=== PATIENT | male | born 1950 | race Caucasian/White ===

== ENCOUNTER 2018-10-04 10:06 | Observation (INO) ==
--- NOTE | 2018-10-04 10:40 | Emergency Department Note ---
Disposition Clinical Impression: Atrial fibrillation with RVR Disposition: Admitted As Inpatient Referrals: Nannette Allan, HE[employer] MACHINERY OPERATOR [Primary Care Provider] - Time of Disposition: 14:06 General Adult HPI - General Chief complaint: ED Arrhythmia/Palpitations Stated complaint: irregular heart beat Time Seen by Provider: 10/04/18 10:16 Source: patient Limitations: no limitations Nursing Notes Reviewed: Yes Vital Signs Reviewed: Yes - History of Present Illness HPI Narrative: She is a 68-year-old male with a history of atrial fibrillation who presents from his PCP office due to an irregular heartbeat. EKG was done finding A. fib with RVR. Patient is on hyzaar and a baby aspirin a day. An EKG was done and PCPs. Showed A. fib with RVR. Patient denies any complaints at this time. States he is feeling fine. Has some palpitations. This is normal for him. Denies chest pain, shortness of breath. Does say has a little epigastric discomfort. Was away with belching. believes he just gas and this is normal for him. His fever chills, cough, chest pain, nausea vomiting, change in bowel or bladder habits, swelling. Dr. Arevalo accepts admission Pain Scale: 0 - Related Data Home Medications Medication Instructions Recorded Confirmed Amlodipine [Norvasc] 5 mg PO DAILY 05/01/15 11/03/16 Aspirin 81 mg PO DAILY 05/01/15 11/03/16 Losartan/Hydrochlorothiazide 1 each PO DAILY 05/01/15 11/03/16 [Hyzaar 100-25 Tablet] Multivitamin [Flintstones] 1 each PO DAILY 05/01/15 11/03/16 Pantoprazole Sodium [Protonix] 20 mg PO DAILY 05/01/15 11/03/16 Previous Rx's Medication Instructions Recorded Atorvastatin [Lipitor] 40 mg PO HS #30 tablet 05/01/15 Ondansetron ODT [Zofran ODT] 4 mg SL Q8HR PRN #6 tab.rapdis 11/06/16 Allergies Allergy/AdvReac Type Severity Reaction Status Date / Time No Known Allergies Allergy Verified 11/06/16 12:59 Constitutional: Reports: as per HPI Eyes: Reports: vision change ENT ED: Denies: congestion Cardiovascular: Reports: as per HPI Respiratory: Reports: as per HPI Gastrointestinal: Reports: as per HPI Genitourinary: Reports: as per HPI Musculoskeletal: Denies: myalgia Integumentary: Denies: rash Neurological: Denies: headache Past Medical History - Past Medical History Medical history: Reports: hypertension Surgical history: Reports: herniorrhaphy Psychiatric history: Reports: anxiety - Social History Smoking Status: Current some day smoker Smokeless Tobacco Status: No Alcohol use: Reports: none Drug use: Reports: none Physical Exam - General Limitations: no limitations General appearance: alert, in no apparent distress - Head Head exam: atraumatic, normocephalic, normal inspection - Eye Eye exam: Present: normal appearance, PERRL, EOMI - ENT ENT exam: normal exam, normal oropharynx, mucous membranes moist - Chest Chest inspection: Present: normal inspection, symmetric chest wall rise - Respiratory Respiratory exam: Present: normal lung sounds bilaterally. Absent: respiratory distress, wheezes - Cardiovascular Cardiovascular exam: Present: tachycardia, irregular rhythm, normal heart sounds - Extremities Exam Extremities exam: Present: normal inspection, full ROM. Absent: tenderness, pedal edema, calf tenderness - Psychiatric Psychiatric exam: Present: normal affect, normal mood - Skin Skin exam: Present: warm, dry, intact, normal color Course Vital Signs Temperature 97.5 F L 10/04/18 10:09 Pulse Rate 78 10/04/18 10:09 Respiratory Rate 14 10/04/18 10:09 Blood Pressure 127/74 10/04/18 10:09 O2 Sat by Pulse Oximetry 99 10/04/18 10:09 Temperature 97.5 F L 10/04/18 10:09 Pulse Rate 110 10/04/18 14:21 Respiratory Rate 16 10/04/18 14:21 Blood Pressure 117/75 10/04/18 14:21 O2 Sat by Pulse Oximetry 97 10/04/18 14:21 Oxygen Delivery Oxygen Delivery Room Air Medical Decision Making - [facility] Narrative Medical decision making narrative: Patient is in stable A. fib with RVR. She was only on Hyzaar and baby aspirin for his A. fib. Not adequately rate controlled. Continue on Cardizem infusion to heart rate less than 90. Patient be paroxysmal A. fib. Heart is and has been lowering heart rate. Patient still slightly tachycardic. We will admit. Remains asymptomatic Dr. Arevalo accepts admission - Lab Data Result diagrams: 10/04/18 10:43 10/04/18 10:43 Lab Results 10/04/18 10/04/18 Range/Units 10:43 10:43 WBC 10.5 (4.3-11.1) K/mcL RBC 5.30 (4.19-5.50) M/mcL Hgb 16.2 (12.9-16.9) g/dL Hct 46.0 (37.5-50.1) % MCV 86.8 (83.0-100.0) fL MCH 30.6 (28.0-33.3) pg MCHC 35.2 (31.6-35.5) g/dL RDW 13.7 (11.5-14.5) % Plt Count 173 (140-400) K/mcL MPV 11.4 (9.4-12.4) fL Immature Gran % 0.3 (0-4) % Seg Neutrophils % 58.3 % Lymphocytes % 28.2 % Monocytes % 9.6 % Eosinophils % 3.2 % Basophils % 0.4 % Neutrophils # 6.1 (1.6-8.9) K/mcL Lymphocytes # 3.0 (0.6-4.6) K/mcL Monocytes # 1.0 (0.0-1.3) K/mcL Eosinophils # 0.3 (0.0-0.6) K/mcL Basophils # 0.0 (0.0-0.2) K/mcL Sodium 143 (136-145) mEq/L Potassium 3.5 (3.5-5.1) mEq/L Chloride 109 H (98-107) mEq/L Carbon Dioxide 23 (23-29) mEq/L BUN 23 (8-23) mg/dL Creatinine 0.86 (0.70-1.30) mg/dL Est GFR ( Amer) > 60 (> 60) Est GFR (Non-Af Amer) > 60 (> 60) BUN/Creatinine Ratio 27 H (6-26) Glucose 132 H (70-105) mg/dL Calculated Osmolality 302 H (280-300) Calcium 9.5 (8.6-10.3) mg/dL Magnesium 2.0 (1.6-2.6) mg/dL Total Bilirubin 0.6 (0.3-1.0) mg/dL AST 16 (13-39) Units/L ALT 17 (7-52) Units/L Alkaline Phosphatase 70 (34-104) Units/L Troponin I < 0.03 (< 0.04) ng/mL Serum Total Protein 6.8 (6.4-8.9) g/dL Albumin 4.2 (3.5-5.7) g/dL Globulin 2.6 (2.4-3.5) g/dL Albumin/Globulin Ratio 1.6 (1.1-2.2)
--- NOTE | 2018-10-04 11:06 | Emergency Department Note ---
Disposition Clinical Impression: Atrial fibrillation with RVR Disposition: Admitted As Inpatient General Adult HPI - General Chief complaint: ED Arrhythmia/Palpitations Stated complaint: irregular heart beat Time Seen by Provider: 10/04/18 10:16 Source: patient Limitations: no limitations - History of Present Illness Pain Scale: 0 - Related Data Home Medications Medication Instructions Recorded Confirmed Amlodipine [Norvasc] 5 mg PO DAILY 05/01/15 11/03/16 Aspirin 81 mg PO DAILY 05/01/15 11/03/16 Losartan/Hydrochlorothiazide 1 each PO DAILY 05/01/15 11/03/16 [Hyzaar 100-25 Tablet] Multivitamin [Flintstones] 1 each PO DAILY 05/01/15 11/03/16 Pantoprazole Sodium [Protonix] 20 mg PO DAILY 05/01/15 11/03/16 Previous Rx's Medication Instructions Recorded Atorvastatin [Lipitor] 40 mg PO HS #30 tablet 05/01/15 Ondansetron ODT [Zofran ODT] 4 mg SL Q8HR PRN #6 tab.rapdis 11/06/16 Allergies Allergy/AdvReac Type Severity Reaction Status Date / Time No Known Allergies Allergy Verified 11/06/16 12:59 Constitutional: Reports: as per HPI Eyes: Reports: vision change ENT ED: Denies: congestion Cardiovascular: Reports: as per HPI Respiratory: Reports: as per HPI Gastrointestinal: Reports: as per HPI Genitourinary: Reports: as per HPI Musculoskeletal: Denies: myalgia Integumentary: Denies: rash Neurological: Denies: headache Past Medical History - Past Medical History Medical history: Reports: hypertension Surgical history: Reports: herniorrhaphy Psychiatric history: Reports: anxiety - Social History Smoking Status: Current some day smoker Smokeless Tobacco Status: No Alcohol use: Reports: none Drug use: Reports: none Physical Exam - General Limitations: no limitations General appearance: alert, in no apparent distress Course Vital Signs Temperature 97.5 F L 10/04/18 10:09 Pulse Rate 78 10/04/18 10:09 Respiratory Rate 14 10/04/18 10:09 Blood Pressure 127/74 10/04/18 10:09 O2 Sat by Pulse Oximetry 99 10/04/18 10:09 Temperature 97.5 F L 10/04/18 10:09 Pulse Rate 110 10/04/18 14:21 Respiratory Rate 16 10/04/18 14:21 Blood Pressure 117/75 10/04/18 14:21 O2 Sat by Pulse Oximetry 97 10/04/18 14:21 Oxygen Delivery Oxygen Delivery Room Air Medical Decision Making - Lab Data Result diagrams: 10/04/18 10:43 10/04/18 10:43 Lab Results 10/04/18 10/04/18 Range/Units 10:43 10:43 WBC 10.5 (4.3-11.1) K/mcL RBC 5.30 (4.19-5.50) M/mcL Hgb 16.2 (12.9-16.9) g/dL Hct 46.0 (37.5-50.1) % MCV 86.8 (83.0-100.0) fL MCH 30.6 (28.0-33.3) pg MCHC 35.2 (31.6-35.5) g/dL RDW 13.7 (11.5-14.5) % Plt Count 173 (140-400) K/mcL MPV 11.4 (9.4-12.4) fL Immature Gran % 0.3 (0-4) % Seg Neutrophils % 58.3 % Lymphocytes % 28.2 % Monocytes % 9.6 % Eosinophils % 3.2 % Basophils % 0.4 % Neutrophils # 6.1 (1.6-8.9) K/mcL Lymphocytes # 3.0 (0.6-4.6) K/mcL Monocytes # 1.0 (0.0-1.3) K/mcL Eosinophils # 0.3 (0.0-0.6) K/mcL Basophils # 0.0 (0.0-0.2) K/mcL Sodium 143 (136-145) mEq/L Potassium 3.5 (3.5-5.1) mEq/L Chloride 109 H (98-107) mEq/L Carbon Dioxide 23 (23-29) mEq/L BUN 23 (8-23) mg/dL Creatinine 0.86 (0.70-1.30) mg/dL Est GFR ( Amer) > 60 (> 60) Est GFR (Non-Af Amer) > 60 (> 60) BUN/Creatinine Ratio 27 H (6-26) Glucose 132 H (70-105) mg/dL Calculated Osmolality 302 H (280-300) Calcium 9.5 (8.6-10.3) mg/dL Magnesium 2.0 (1.6-2.6) mg/dL Total Bilirubin 0.6 (0.3-1.0) mg/dL AST 16 (13-39) Units/L ALT 17 (7-52) Units/L Alkaline Phosphatase 70 (34-104) Units/L Troponin I < 0.03 (< 0.04) ng/mL Serum Total Protein 6.8 (6.4-8.9) g/dL Albumin 4.2 (3.5-5.7) g/dL Globulin 2.6 (2.4-3.5) g/dL Albumin/Globulin Ratio 1.6 (1.1-2.2) TSH 1.526 (0.340-5.600) mcIU/mL Critical Care Time Critical Care Time: Yes Total Critical Care Time: 40 Attestation: Critical care performed: Time is exclusive of separately billable procedures. Time includes: direct patient care, patient reassessment, coordination of patient care, interpretation of data (laboratory data, radiology data, and respiratory data), review of patient's medical records, medical consultation and documentation of patient care. Procedures included in critical care time: Procedures excluded from critical care time: Attestation Statement - Attestation Attestation: I examined this patient and my medical decision-making was reviewed with the Resident Physician. I agree with the documented findings, disposition and t reatment plan as described except to the extent set forth below. Patient to the ED with a chief complaint of A. fib. Patient was at is primary provider's office and found to be in atrial fibrillation with RVR. He has a history of the same. He is not sure if he is in this rhythm on the time. He does admit to some intermittent palpitations but states he has felt fine recently. No chest pain. On examination he is pleasant conversant sitting up in bed in no acute distress. Heart tachycardia and irregular and lungs are clear. Plan. Cardiac workup with magnesium. Rate control. Anticoagulation. Likely admission. Admitted to medicine.
[2018-10-04 11:10] LABS: Basophils % 0.4 %; Eosinophils # 0.3 K/mcL (0.0-0.6); Eosinophils % 3.2 %; Hemoglobin 16.2 g/dL (12.9-16.9); Immature Granulocytes % 0.3 % (0-4); Lymphocytes % 28.2 %; Mean Corpuscular HGB Conc 35.2 g/dL (31.6-35.5); Mean Corpuscular Hemoglobin 30.6 pg (28.0-33.3); Mean Corpuscular Volume 86.8 fL (83.0-100.0); Mean Platelet Volume 11.4 fL (9.4-12.4); Monocytes % 9.6 %; Neutrophils # 6.1 K/mcL (1.6-8.9); Platelet Count 173 K/mcL (140-400); Red Cell Distribution Width 13.7 % (11.5-14.5); Segmented Neutrophils % 58.3 %
[2018-10-04 11:31] LABS: Alanine Aminotransferase 17 Units/L (7-52); Albumin 4.2 g/dL (3.5-5.7); Albumin/Globulin Ratio 1.6 (1.1-2.2); Alkaline Phosphatase 70 Units/L (34-104); Aspartate Amino Transferase 16 Units/L (13-39); BUN/Creatinine Ratio 27 (6-26); Bilirubin,Total 0.6 mg/dL (0.3-1.0); Blood Urea Nitrogen 23 mg/dL (8-23); Calcium 9.5 mg/dL (8.6-10.3); Carbon Dioxide 23 mEq/L (23-29); Chloride 109 mEq/L (98-107); Globulin 2.6 g/dL (2.4-3.5); Glucose 132 mg/dL (70-105); Osmolality,Calculated 302 (280-300); Potassium 3.5 mEq/L (3.5-5.1); Sodium 143 mEq/L (136-145); Total Protein 6.8 g/dL (6.4-8.9); Troponin I < 0.03 ng/mL (< 0.04); eGFR For Non-African Americans > 60 (> 60)
[2018-10-04] MEDS ORDERED: Naloxone 0.4 MG/ML INJ IVP PRN (14:43)
[2018-10-04] MEDS ORDERED: Acetaminophen 325 MG TABLET PO PRN (14:43)
--- NOTE | 2018-10-04 14:58 | Internal Med History&Physical ---
Date of Encounter: 10/04/18 Time of Encounter: 14:55 Internal Medicine - H&P: HPI Chief complaint: Patient was sent from his primary care's office for new atrial fibrillation Admitted From: Emergency Dept Plans for Post Hospital Care: Home History of present illness: Mr. Song is a 68 year old male with a past medical history of hyperlipidemia, hypertension, current smoker who presented from his primary care's office for findings concerning for atrial fibrillation with rapid ventricular rate. He went there for a routine physical and denied any new symptoms. He does state that he often on does get some palpitations in his chest which have happened for several months to years and he never thought anything's concerning for that he did he denies any chest pain, shortness of breath, dizziness, headaches, tingling or numbness or weakness in any part of his body. The primary care did an EKG and he was found to have a rate of 140+ with suggestion of atrial fibrillation which is new for the patient and then he was directed to come to the ER. His blood pressure was descent and he was not expressing any neurolo gical symptoms. He is being placed in the hospital for observation. Past Med Surg Social Fam HX - Past Medical History Medical history: hypertension Additional medical history: CHRONIC RENAL INFARCT. ABNORMAL STRESS TEST. Irregular heartbeat Psychiatric history: anxiety - Past Surgical History Surgical History: herniorrhaphy Additional surgical history: RIGHT GREAT TOE REATTACHED. INGUINAL HERNIA. heart cath-no stents - Social History Smoking Status: Current some day smoker Smokeless Tobacco Status: No Alcohol use: none Drug use: none - Additional Family History Additional family history: He does have a family history of early heart attacks in his parents in around 60s Internal Medicine - H&P: Meds Amlodipine [Norvasc] 5 mg PO DAILY 05/01/15 [History] Aspirin 81 mg PO DAILY 05/01/15 [History] Atorvastatin [Lipitor] 40 mg PO HS #30 tablet 05/01/15 [Rx] Losartan/Hydrochlorothiazide [Hyzaar 100-25 Tablet] 1 each PO DAILY 05/01/15 [History] Multivitamin [Flintstones] 1 each PO DAILY 05/01/15 [History] Pantoprazole Sodium [Protonix] 20 mg PO DAILY 05/01/15 [History] Ondansetron ODT [Zofran ODT] 4 mg SL Q8HR PRN #6 tab.rapdis 11/06/16 [Rx] Allergy/AdvReac Type Severity Reaction Status Date / Time No Known Allergies Allergy Verified 11/06/16 12:59 All Systems PM: A 10-system review of systems was performed and is negative for pertinent find ings except as documented above in the HPI. - Constitutional Vitals: Temp Pulse Resp BP Pulse Ox 97.5 F L 110 16 117/75 97 10/04/18 10:09 10/04/18 14:21 10/04/18 14:21 10/04/18 14:21 10/04/18 14:21 Exam: GENERAL: Alert, no distress, cooperative EYES: PERRLA, EOMI EARS: External ears normal, canals clear OROPHARYNX: Lips, mucosa, and tongue normal. Teeth and gums normal. Oropharynx normal. NECK: No jugulovenous distention, No carotid bruits, Carotid pulse normal contour, Supple LUNGS: Lungs clear to auscultation, Good diaphragmatic excursion CARDIAC: Tachycardic, irregularly irregular rhythm, no murmurs rubs or gallops. ABDOMEN: Abdomen soft, non-tender, BS normal, No masses or organomegaly EXTREMITIES: Extremities normal, no deformities, edema, clubbing or skin discoloration. Good capillary refill., No ulcers NEURO: Gait normal. Reflexes normal and symmetric. Sensation grossly intact, Cranial nerves II-XII intact PULSES: 2+ radial, 2+ carotid Rest of the exam is non contributory Internal Med - H&P Results - Labs CBC & Chem 7: 10/04/18 10:43 10/04/18 10:43 Labs: Short CBC 10/04/18 Range/Units 10:43 WBC 10.5 (4.3-11.1) K/mcL Hgb 16.2 (12.9-16.9) g/dL Hct 46.0 (37.5-50.1) % Plt Count 173 (140-400) K/mcL Neutrophils # 6.1 (1.6-8.9) K/mcL BMP 10/04/18 10:43 Sodium 143 Potassium 3.5 Chloride 109 H Carbon Dioxide 23 BUN 23 Creatinine 0.86 Glucose 132 H Calcium 9.5 Cardiac Enzymes 10/04/18 Range/Units 10:43 Troponin I < 0.03 (< 0.04) ng/mL Liver Function 10/04/18 Range/Units 10:43 Total Bilirubin 0.6 (0.3-1.0) mg/dL AST 16 (13-39) Units/L ALT 17 (7-52) Units/L Alkaline Phosphatase 70 (34-104) Units/L Albumin 4.2 (3.5-5.7) g/dL - EKG Data -: EKG Interpreted by Myself Rate: tachycardia (Atrial fibrillation with heart rate of about 140. No ST elevation or depression) - EKG Data Prior EKG available for review: yes When compared to previous EKG: there are significant changes EKG comments: 10/04/18 15:00 EKG reviewed was February 2015 which showed sinus bradycardia - Assessment and plan (1) Atrial fibrillation with RVR Current Visit: Yes Status: Acute Assessment and plan: This is new for the patient and most likely paroxysmal. Patient does not have any gross symptoms although he is had some palpitations off and on for several months. He does have a history of coronary artery disease and his last cardiac catheter was done in 2014 which showed moderate atherosclerotic disease and ejection fraction was normal. He underwent a cardiac catheter after an abnormal stress test. For now I will continue Cardizem drip to titrate his heart rate less than 100. Place him on cardiac telemetry monitoring and check serial cardiac enzymes I did have a detailed discussion regarding anticoagulation and the patient prefers to be on a NOAC I will initiate eliquis 5 mg twice a day starting tonight. In the meantime we will check a 2-D echo, check a TSH level. I will also consult cardiology. Based on chadsvasc scoring of 2 he has a 2.2% stroke/TIA risk per year Once his heart rate is better controlled, we can consider rate control strategy with anticoagulation in the long-term. (2) Essential hypertension Current Visit: Yes Status: Acute Assessment and plan: Continue home antihypertensive regimen and monitor on the floor (3) Hyperlipidemia Current Visit: Yes Status: Acute Assessment and plan: Continue statins. Qualifiers: Hyperlipidemia type: other hyperlipidemia Qualified Code(s): E78.49 - Other hyperlipidemia; E78.4 - Other hyperlipidemia (4) Current smoker Current Visit: Yes Status: Acute Assessment and plan: Patient smokes a pipe almost daily for 40 years. Smoking cessation education has been provided. - Time Spent With Patient Total time spent is greater than 50% in coordination of care (as documented) at patient's floor/unit and/or counseling patient: Greater than 35 minutes (Total time spent was 75 minutes with more than 50% time spent in [id number] counseling) - VTE Reasons for not Prescribing Prophylaxis: Not indicated-Anticoagulated or INR therapeutic
[2018-10-04 15:28] LABS: Thyroid Stimulating Hormone 1.526 mcIU/mL (0.340-5.600)
[2018-10-04] MEDS ORDERED: Perflutren Lipid Microsphere 1.3 ML in 0.9 % Sodium Chloride 8.7 ML IVP ONE (16:36)
[2018-10-04] MEDS ORDERED: 0.9 % Sodium Chloride 250 ML ONE (20:34)
[2018-10-04] MEDS: Apixaban 5 MG TABLET PO SCH (21:26)
[2018-10-05 06:01] LABS: Basophils % 0.3 %; Eosinophils # 0.5 K/mcL (0.0-0.6); Eosinophils % 4.9 %; Hematocrit 46.6 % (37.5-50.1); Hemoglobin 15.7 g/dL (12.9-16.9); Immature Granulocytes % 0.2 % (0-4); Lymphocytes # 2.7 K/mcL (0.6-4.6); Lymphocytes % 28.3 %; Mean Corpuscular HGB Conc 33.7 g/dL (31.6-35.5); Mean Corpuscular Hemoglobin 29.8 pg (28.0-33.3); Mean Corpuscular Volume 88.4 fL (83.0-100.0); Mean Platelet Volume 11.2 fL (9.4-12.4); Monocytes # 0.9 K/mcL (0.0-1.3); Monocytes % 9.6 %; Neutrophils # 5.5 K/mcL (1.6-8.9); Platelet Count 143 K/mcL (140-400); Red Blood Count 5.27 M/mcL (4.19-5.50); Red Cell Distribution Width 13.5 % (11.5-14.5); Segmented Neutrophils % 56.7 %
[2018-10-05 06:19] LABS: BUN/Creatinine Ratio 23 (6-26); Blood Urea Nitrogen 20 mg/dL (8-23); Calcium 8.9 mg/dL (8.6-10.3); Carbon Dioxide 24 mEq/L (23-29); Chloride 109 mEq/L (98-107); Glucose 136 mg/dL (70-105); Osmolality,Calculated 295 (280-300); Potassium 3.3 mEq/L (3.5-5.1); Sodium 140 mEq/L (136-145); eGFR For Non-African Americans > 60 (> 60)
[2018-10-05 06:20] LABS: Troponin I < 0.03 ng/mL (< 0.04)
[2018-10-05] MEDS: Apixaban 5 MG TABLET PO SCH (08:04)
--- NOTE | 2018-10-05 08:37 | Cardiology Consult Note ---
<Rico Kaufman - Last Filed: 10/05/18 11:27> Date of Encounter: 10/05/18 Time of Encounter: 08:35 Assessment and Plan (1) Atrial fibrillation with RVR Current Visit: Yes Status: Acute Per Cardiology: Currently A. fib with heart rates fluctuating 80s to 100s on telemetry. Average heart rate the past 12 hours 93, atrial fibrillation, longest pause 3 seconds. Now off Cardizem drip. Received by mouth beta jose per primary service. We will discontinue beta jose and initiate by mouth Cardizem. Patient has past intolerance to beta jose in the past with weakness, bradycardia, and falls. Will discuss with Dr. Jaycob Muller. Current systolic blood pressure in the 110s. We will also discontinue accommodation ARB/HCTZ. Recommend have patient monitor heart rate and blood pressure in outpatient setting and bring to follow- up appointment. Regarding long-term anticoagulation, already started on Eliquis per primary service. Cardiology will signoff, reconsult as needed, follow-up arranged. (2) CAD (coronary artery disease) Current Visit: Yes Status: Chronic Per Cardiology: Trops negative 4. Left heart catheterization from 2015 for abnormal stress test: Impressions: Moderate atherosclerotic coronary artery disease. The left ventricle is normal and has normal contractility EF 65% Apical diverticulum of the LV. Lesion Findings/Interventions * Left Main Coronary Artery The LMCA is angiographically free of disease. * Left Anterior Descending There is a 40% stenosis in the Proximal LAD. There is a 40% stenosis in the Mid LAD. * Circumflex The Circumflex is a small nondominant vessel with 30% stenosis * Right Coronary Artery - large (5mm+) dominant vessel There is a 30% stenosis in the Proximal RCA. There is a 30% stenosis in the Mid RCA. There is a 50% stenosis in the Right PDA. There is a 60-70% stenosis in the 1st branch of Right PLV. Chest pain-free. On aspirin and statin. Qualifiers: Coronary Disease-Associated Artery/Lesion type: [place] artery [place] vs. transplanted heart: [place] heart Associated angina: angina presence unspecified Qualified Code(s): I25.10 - Atherosclerotic heart disease of [place] coronary artery without angina pectoris Discussion w patient/family: The assessment and plan as outlined above was discussed with the patient and/or family members who expressed understanding and agreement. All questions were answered. Thank you for involving us in the care of your patient. Please call with any questions. History of Present Illness Consult date: 10/05/18 Consult reason: Afib RVR Chief complaint: Palps History of present illness: Mr. Song is a 68 year old male with a past medical history of hypertension, hyperlipidemia, and nicotine abuse. Cardiology consult for A. fib with RVR. Patient reports intermittent palpitations last few days. Reports presented to see PCP for annual physical and found to be A. fib with RVR. He did report a few episodes of dizziness the past few days. Denies any syncopal events or falls. Reports past intolerance to beta jose with weakness and low heart rates. He also reports experienced falls at that time taking beta jose. Denies any active bleeding or blood loss. Denies any chest pain. Denies any recent infectious process. Past Med Surg Social Fam HX - Past Medical History Attestation: Yes The following information was validated with the patient. Source: patient, old records reviewed, obtained from family Medical history: arthritis, atrial fibrillation, GI bleed, hyperlipidemia, hypertension Additional medical history: CHRONIC RENAL INFARCT. ABNORMAL STRESS TEST. Irregular heartbeat Psychiatric history: anxiety - Past Surgical History Surgical History: herniorrhaphy Additional surgical history: RIGHT GREAT TOE REATTACHED. INGUINAL HERNIA. heart cath-no stents - Social History Smoking Status: Current some day smoker Smokeless Tobacco Status: No Alcohol use: none Drug use: none Medications and Allergies RX: Aspirin 81 mg PO DAILY 05/01/15 [History] RX: Atorvastatin [Lipitor] 40 mg PO HS #30 tablet 05/01/15 [Rx] RX: Multivitamin [Flintstones] 1 each PO DAILY 05/01/15 [History] RX: Pantoprazole Sodium [Protonix] 20 mg PO DAILY 05/01/15 [History] RX: Ranitidine HCl [Acid Dust Control Engineer] 150 mg PO DAILY 10/04/18 [History] RX: Apixaban [Eliquis] 5 mg PO BID #60 tablet 10/05/18 [Rx] RX: Diltiazem CD (24hr) [Cardizem CD] 120 mg PO DAILY #30 cap.er.24h 10/05/18 [Rx] Allergy/AdvReac Type Severity Reaction Status Date / Time No Known Allergies Allergy Verified 11/06/16 12:59 All Systems Review: The remainder of the systems were reviewed and are negative - Cardiovascular Cardiovascular: as per HPI, palpitations, rapid heart rate Physical Examination Vital Signs, Last 4 Hours Temp Pulse Resp BP Pulse Ox 10/05/18 07:40 97.6 F 98 14 113/79 95 General: Conversant, No Apparent Distress HEENT: Atraumatic, Normocephaly, Mucus Membranes Moist Neck: No JVD, Normal carotid pulses Cardiac: No Murmur, Other (Irregularly irregular) Lungs: Normal Breath Sounds, No Wheeze, Rales, Rhonchi Neuro: Alert and responsive, No focal deficits noted Abdomen: Soft, Non-Tender Skin: No rashes noted on visualized skin Musculoskeletal: No Chest Wall Tenderness Extremities: No Clubbing, No Cyanosis, No Edema, Normal Pulses Results 10/05/18 05:20 10/05/18 05:20 Lab Results Laboratory Tests 10/04/18 10/04/18 10/04/18 10:43 17:27 23:39 Hgb Hct Potassium Creatinine Est GFR (Non-Af Amer) Magnesium 2.0 AST 16 ALT 17 Troponin I < 0.03 < 0.03 < 0.03 TSH 1.526 10/05/18 10/05/18 05:20 05:20 Hgb 15.7 Hct 46.6 Potassium 3.3 L Creatinine 0.86 Est GFR (Non-Af Amer) > 60 Magnesium AST ALT Troponin I < 0.03 TSH ITS Impressions Echocardiogram 10/04/18 14:45 Impressions: LVEF 55-60%. Normal LV chamber size, wall thickness and function. Indeterminate diastolic function. Normal right ventricular structure and function. No significant valvular dysfunction. Unable to estimate RVSP due to lack of TR jet. Left Ventricular Wall Motion: Rest Echo Findings All wall segments showed normal motion. Findings: Study Quality * Technically adequate exam. ECG Findings * Atrial fibrillation. Left Ventricle * LVEF 55-60%. * Normal LV chamber size, wall thickness and function. * Indeterminate diastolic function. * Definity echo contrast was used. Right Ventricle * Normal right ventricular structure and function. Left Atrium * Normal left atrial size. Right Atrium * Normal right atrial size. Interatrial Septum * Interatrial septum not well evaluated. Aortic Valve * Trileaflet aortic valve. * No aortic regurgitation. * No aortic stenosis. * Normal aortic valve structure. Mitral Valve * Normal mitral valve structure. * No mitral regurgitation. * No mitral stenosis. Tricuspid Valve * Normal tricuspid valve structure. * No tricuspid regurgitation. * No tricuspid stenosis. * Unable to estimate RVSP due to lack of TR jet. Pulmonic Valve * Normal pulmonic valve structure. * No pulmonic regurgitation. Aorta * Normally sized aortic root. Pericardium * The pericardium appears normal. IVC * Normal IVC dimensions and inspiratory collapse. Pulmonary Artery * Normal visualized portions of the main pulmonary artery. Active Medications Acetaminophen (Tylenol) 650 mg PO Q6HR PRN PRN Reason: Mild Pain/Fever Stop: 04/05/19 14:44 Apixaban (Eliquis) 5 mg PO BID [facility] Stop: 04/05/19 21:01 Last Admin: 10/05/18 08:04 Dose: 5 mg Aspirin (Aspirin) 81 mg PO DAILY [facility] Stop: 04/06/19 09:01 Last Admin: 10/05/18 08:05 Dose: 81 mg Atorvastatin Calcium (Lipitor) 40 mg PO HS [facility] Stop: 04/05/19 21:01 Last Admin: 10/04/18 21:43 Dose: Not Given HCTZ/Losartan Potassium (Hyzaar 50/12.5) 2 each PO DAILY [facility] Stop: 04/06/19 09:01 Last Admin: 10/05/18 08:05 Dose: 2 each Diltiazem HCl 50 mg/ Sodium (Chloride) 50 mls @ 5 mls/hr IVC .Q10H [facility]; Protocol Stop: 04/05/19 11:16 Last Admin: 10/05/18 08:04 Dose: Not Given Naloxone HCl (Narcan) 0.4 mg IVP Q2MIN PRN PRN Reason: SEE COMMENTS Stop: 04/05/19 14:44 Omeprazole (Prilosec) 20 mg PO 0630 [facility] Stop: 04/06/19 06:31 Last Admin: 10/05/18 05:28 Dose: 20 mg - Imaging and Cardiology Echo: report reviewed - EKG Interpretation EKG results cardiology: personally reviewed (afib) Consult Discharge Plan - Plan Instructions: Atrial Fibrillation (DC) Referrals: Nannette Allan, COOK DESSERT [Primary Care Provider] - Prescriptions: RX: Apixaban [Eliquis] 5 mg PO BID #60 tablet RX: Diltiazem CD (24hr) [Cardizem CD] 120 mg PO DAILY #30 cap.er.24h <Jaycob Muller - Last Filed: 10/05/18 13:20> Date of Encounter: 10/05/18 - Attending Attestation I have personally performed a face to face evaluation on this patient. I have reviewed and agree with the care plan. History and Exam by me shows: AF of unknown duration. Currently rate controlled. Would recommend rate control and anticoagulation. Can follow up as outpt. Assessment and Plan Discussion w patient/family: The assessment and plan as outlined above was discussed with the patient and/or family members who expressed understanding and agreement. All questions were answered. Thank you for involving us in the care of your patient. Please call with any questions. History of Present Illness History of present illness: Mr. Song is a 68 year old male All Systems Review: The remainder of the systems were reviewed and are negative Physical Examination Vital Signs, Last 4 Hours Temp Pulse Resp BP Pulse Ox 10/05/18 12:21 97.7 F 83 16 103/85 94 10/05/18 10:55 78 10/05/18 10:30 70 Results 10/05/18 05:20 10/05/18 05:20 Lab Results 10/04/18 10/04/18 10/04/18 10:43 17:27 23:39 WBC Hgb Hct Plt Count Sodium 143 Potassium 3.5 Chloride 109 H Carbon Dioxide 23 BUN 23 Creatinine 0.86 Glucose 132 H Calcium 9.5 Magnesium 2.0 Total Bilirubin 0.6 AST 16 ALT 17 Alkaline Phosphatase 70 Troponin I < 0.03 < 0.03 < 0.03 TSH 1.526 10/05/18 10/05/18 05:20 05:20 WBC 9.7 Hgb 15.7 Hct 46.6 Plt Count 143 Sodium 140 Potassium 3.3 L Chloride 109 H Carbon Dioxide 24 BUN 20 Creatinine 0.86 Glucose 136 H Calcium 8.9 Magnesium Total Bilirubin AST ALT Alkaline Phosphatase Troponin I < 0.03 TSH
[2018-10-05] MEDS ORDERED: Losartan/HCTZ 50-12.5 TABLET PO SCH (09:00)
[2018-10-05] MEDS ORDERED: Aspirin 81 MG TAB.CHEW PO SCH (09:00)
[2018-10-05 12:23] VITALS: BP 103/85
--- NOTE | 2018-10-05 12:45 | Discharge Summary ---
- NOTES TO OUTPATIENT PROVIDER Notes to Outpatient Provider: Follow-up with cardiology in 1-2 weeks' time for new diagnoses of paroxysmal atrial fibrillation and need for cardioversion. Orders not resulted at time of discharge: Pending orders 10/05/18 06:00 ECG 12 lead ECG [ECG] AM 0600 Date of Encounter: 10/05/18 Time of Encounter: 12:40 - Discharge Diagnosis (1) Atrial fibrillation with RVR Priority: Primary Status: Acute (2) Essential hypertension Priority: Secondary Status: Acute (3) Hyperlipidemia Priority: Secondary Status: Acute Qualifiers: Hyperlipidemia type: other hyperlipidemia Qualified Code(s): E78.49 - Other hyperlipidemia; E78.4 - Other hyperlipidemia (4) Current smoker Priority: Secondary Status: Acute Hospital course: Mr. Song is a 68 year old male who was admitted from his primary care's office with concern for newly diagnosed atrial fibrillation with rapid ventricle rate. The patient himself was more or less is not medically except for occasional palpitations. He was found to be in atrial ablation with rapid ventricular rate and started on Cardizem drip. Cardiology was probably consulted today he has been able to be weaned down to Cardizem CD 120 mg daily. He is also started on Eliquis for the atrial fibrillation and anticoagulation. Cardiology will plan on following him up as an outpatient to evaluate him for cardioversion. He did undergo a 2-D echo which showed an ejection fraction of 55-60%, normal LV chamber size wall thickness and function, indeterminate diastolic function. He is symptom free. We have made some adjustments to his antihypertensive medications and taken away his lisinopril and amlodipine. He will be continued on Cardizem and he is supposed to keep a diary of his blood pressures and heart rate and follow up with cardiology in about 1-2 weeks' time. He has been given all instructions and answered all questions regarding bleeding complications that could happen from being on blood thinners. He also has been asked to be completely compliant with this medication. Discharge discussed with: patient - Time Spent with Patient Total time spent providing and/or coordinating discharge services:40 - Discharge Medications Prescriptions: Apixaban [Eliquis] 5 mg PO BID #60 tablet Diltiazem CD (24hr) [Cardizem CD] 120 mg PO DAILY #30 cap.er.24h Home Medications: Aspirin 81 mg PO DAILY 05/01/15 [History] Atorvastatin [Lipitor] 40 mg PO HS #30 tablet 05/01/15 [Rx] Multivitamin [Flintstones] 1 each PO DAILY 05/01/15 [History] Pantoprazole Sodium [Protonix] 20 mg PO DAILY 05/01/15 [History] Ranitidine HCl [Acid Gis Administrator] 150 mg PO DAILY 10/04/18 [History] Apixaban [Eliquis] 5 mg PO BID #60 tablet 10/05/18 [Rx] Diltiazem CD (24hr) [Cardizem CD] 120 mg PO DAILY #30 cap.er.24h 10/05/18 [Rx] Allergies/Adverse Reactions: Allergy/AdvReac Type Severity Reaction Status Date / Time No Known Allergies Allergy Verified 11/06/16 12:59 Date of admission: 10/04/18 14:45 Primary care physician: Nannette Allan CNP Consults: 10/04/18 14:47 Consult to Cardiology [CONS] Stat Comment: Consulting Provider: Cardiology [place] Reason for Consult: New Afib w RVR Time Notified: 14:47 Call Completed: Yes - Constitutional Vitals: Temp Pulse Resp BP Pulse Ox 97.7 F 83 16 103/85 94 10/05/18 12:21 10/05/18 12:21 10/05/18 12:21 10/05/18 12:21 10/05/18 12:21 Exam: GENERAL: Alert, no distress, cooperative NECK: No jugulovenous distention, No carotid bruits, Carotid pulse normal contour, Supple LUNGS: Lungs clear to auscultation, Good diaphragmatic excursion CARDIAC: Tachycardic, irregularly irregular rhythm, no murmurs rubs or gallops. ABDOMEN: Abdomen soft, non-tender, BS normal, No masses or organomegaly EXTREMITIES: Extremities normal, no deformities, edema, clubbing or skin discoloration. Good capillary refill., No ulcers PULSES: 2+ radial, 2+ carotid Rest of the exam is non contributory - Patient Status Disposition: Home, Self-Care Condition: Good Functional capacity at discharge: independent ambulation Overall status at discharge: patient is back to baseline - Discharge Instructions Instructions: Atrial Fibrillation (DC) Follow Up With: Nannette Allan CNP [Primary Care Provider] - - Diet and Activity Activity: increase activity as tolerated Diet: advance to your usual diet - VTE Reasons for not Prescribing Prophylaxis: Not indicated-Anticoagulated or INR therapeutic
--- NOTE | 2018-10-05 21:18 | Electrocardiograph Report ---
[address] [place], [place] [address] Test Date: 2018-10-04 Pat Name: Darrick Song Department: EXAM8 Room: 2S3 Gender: M Social Work Associate: : [id number] Requested By: Colin Josue Order Number: [id number] Reading MD: Marilia Chi Measurements Intervals [place] Rate: 147 P: 0 [place]: 145 QRS: 79 QRSD: 99 T: -83 QT: 282 QTc: 441 Interpretive Statements ATRIAL FIBRILLATION WITH RVR Electronically Signed On 10-05-2018 21:16:52 EST by Marilia Chi
[2018-10-06] MEDS ORDERED: Famotidine 20 MG TABLET PO SCH (07:30)
[2018-10-06] MEDS ORDERED: Diltiazem CD (24hr) 120 MG CAPSULE PO SCH (09:00)
== END 2018-10-05 15:13 | disposition home or self-care (01) ==
LOC: EMEROOARM 10:06 → 2SOUTHHOLD 10:06
PROVIDERS: ADMIT Internal Medicine; ATTEND Internal Medicine

== ENCOUNTER 2022-03-27 13:00 | Inpatient (IN) ==
[2022-03-27] MEDS ORDERED: 0.9 % Sodium Chloride 1,000 ML IV ONE (13:54)
[2022-03-27] MEDS ORDERED: Iopamidol - 370 500 ML MLS IVP ONE (13:54)
[2022-03-27 14:09] LABS: Basophils # 0.1 K/mcL (0.0-0.2); Basophils % 0.7 %; Eosinophils # 0.1 K/mcL (0.0-0.6); Hematocrit 48.6 % (37.5-50.1); Hemoglobin 16.6 g/dL (12.9-16.9); Immature Granulocytes % 4.3 % (0-4); Lymphocytes # 1.2 K/mcL (0.6-4.6); Lymphocytes % 8.4 %; Mean Corpuscular HGB Conc 34.2 g/dL (31.6-35.5); Mean Corpuscular Hemoglobin 28.8 pg (28.0-33.3); Mean Corpuscular Volume 84.2 fL (83.0-100.0); Mean Platelet Volume 10.6 fL (9.4-12.4); Monocytes # 0.8 K/mcL (0.0-1.3); Monocytes % 5.7 %; Nucleated Red Blood Cells 0.2 /100 WBC (0); Platelet Count 227 K/mcL (140-400); Red Blood Count 5.77 M/mcL (4.19-5.50); Red Cell Distribution Width 19.3 % (11.5-14.5); Segmented Neutrophils % 79.9 %; White Blood Count 13.7 K/mcL (4.3-11.1)
[2022-03-27 14:16] LABS: INR 3.5; Prothrombin Time 38.5 Seconds (9.4-12.1)
[2022-03-27 14:19] LABS: Activated Partial Thrombo Time 41.7 Seconds (26.0-36.0)
[2022-03-27 14:40] LABS: Alanine Aminotransferase 22 Units/L (7-52); Albumin 3.6 g/dL (3.5-5.7); Albumin/Globulin Ratio 1.4 (1.1-2.2); Alkaline Phosphatase 56 Units/L (34-104); Aspartate Amino Transferase 18 Units/L (13-39); BUN/Creatinine Ratio 41 (6-26); Bilirubin,Direct 0.1 mg/dL (0.0-0.2); Bilirubin,Indirect 0.7 mg/dL (0.0-1.0); Bilirubin,Total 0.8 mg/dL (0.3-1.0); Blood Urea Nitrogen 48 mg/dL (8-23); Calcium 9.3 mg/dL (8.6-10.3); Carbon Dioxide 21 mEq/L (23-29); Chloride 101 mEq/L (98-107); Globulin 2.5 g/dL (2.4-3.5); Glucose 260 mg/dL (70-105); Magnesium 1.8 mg/dL (1.6-2.6); Osmolality,Calculated 300 (280-300); Potassium 4.4 mEq/L (3.5-5.1); Sodium 134 mEq/L (136-145); Total Protein 6.1 g/dL (6.4-8.9); Troponin I 0.04 ng/mL (< 0.04); eGFR For African Americans > 60 (> 60); eGFR For Non-African Americans > 60 (> 60)
[2022-03-27 14:45] LABS: Thyroid Stimulating Hormone 3.976 mcIU/mL (0.340-5.600)
[2022-03-27 14:54] LABS: Influenza A PCR Negative (Negative); Influenza B PCR Negative (Negative); Resp. Syncytial Virus PCR Negative (Negative)
[2022-03-27 15:05] LABS: Bilirubin,Urine Negative (Negative); Blood,Urine Moderate (Negative); Clarity,Urine Clear (Clear); Color,Urine Light-Yellow (Yellow); Glucose,Urine (UA) 70 mg/dL (Normal); Hyaline Casts,Urine Few per lpf (None Seen); Ketones,Urine Negative (Negative); Leukocyte Esterase,Urine Negative (Negative); Mucus,Urine Few per lpf (None-Few); Nitrite,Urine Negative (Negative); PH,Urine 5.5 pH Units (5.0-8.0); Protein,Urine Negative (Neg-Trace); RBC,Urine 15-30 per hpf (0-3); Specific Gravity,Urine 1.015 (1.010-1.025); Urobilinogen,Urine Normal (Normal); WBC,Urine 0-3 per hpf (0-3)
[2022-03-27] MEDS ORDERED: *HR* Digoxin 0.5 MG/2 ML AMPUL IVP ONE (15:15)
[2022-03-27 15:39] LABS: SARS-CoV-2 by PCR (In House) Negative (Negative)
[2022-03-27] MEDS ORDERED: *HR* Metoprolol 5 MG/5 ML VIAL IVP ONE (16:19)
[2022-03-27] MEDS ORDERED: Calcium Gluconate 1gm/50mL 1 GM/50 ML BAG IVPB SCH (17:00)
[2022-03-27] MEDS ORDERED: Acetaminophen 325 MG TABLET PO PRN (17:31)
[2022-03-27] MEDS ORDERED: Naloxone 0.4 MG/ML INJ IVP PRN (17:31)
[2022-03-27] MEDS ORDERED: Ondansetron 4 MG/2 ML VIAL IVP PRN (17:39)
[2022-03-27] MEDS ORDERED: D5% in Water 1,000 ML IVC PRN (17:39)
[2022-03-27] MEDS ORDERED: Dextrose Gel 15 GM/37.5 ML TUBE PO PRN ×2 (17:39)
[2022-03-27] MEDS ORDERED: *HR* Dextrose 50 % in Water (Syg) 50 ML SYRINGE IVP PRN (17:39)
[2022-03-27] MEDS ORDERED: Perflutren Lipid Microsphere 1.3 ML in 0.9 % Sodium Chloride 8.7 ML IVP PRN (17:41)
[2022-03-27 19:21] LABS: Estimated Average Glucose 223 mg/dl; Hemoglobin A1C 9.4 %
[2022-03-27] MEDS: Doxycycline 100 MG CAPSULE PO SCH ×2 (21:03→21:07)
[2022-03-27] MEDS: cefTRIAXone 2,000 MG in 0.9 % Sodium Chloride 20 ML IVP SCH (21:06)
[2022-03-27] MEDS: predniSONE 20 MG TABLET PO SCH (21:06)
[2022-03-27] MEDS: Insulin LISPRO 300 UNITS/3 ML VIAL SUBQ SCH (21:06)
[2022-03-27] MEDS: *HR* Digoxin 0.5 MG/2 ML AMPUL IVP SCH (21:07)
[2022-03-28] MEDS: *HR* Digoxin 0.5 MG/2 ML AMPUL IVP SCH (03:07)
[2022-03-28 04:23] LABS: Basophils # 0.1 K/mcL (0.0-0.2); Basophils % 0.8 %; Eosinophils # 0.1 K/mcL (0.0-0.6); Eosinophils % 0.6 %; Hematocrit 45.3 % (37.5-50.1); Hemoglobin 15.2 g/dL (12.9-16.9); Immature Granulocytes % 4.4 % (0-4); Lymphocytes # 0.9 K/mcL (0.6-4.6); Lymphocytes % 10.1 %; Mean Corpuscular HGB Conc 33.6 g/dL (31.6-35.5); Mean Corpuscular Hemoglobin 28.7 pg (28.0-33.3); Mean Corpuscular Volume 85.6 fL (83.0-100.0); Mean Platelet Volume 10.3 fL (9.4-12.4); Monocytes # 0.4 K/mcL (0.0-1.3); Monocytes % 4.6 %; Neutrophils # 7.1 K/mcL (1.6-8.9); Platelet Count 173 K/mcL (140-400); Red Blood Count 5.29 M/mcL (4.19-5.50); Red Cell Distribution Width 18.8 % (11.5-14.5); Segmented Neutrophils % 79.5 %; White Blood Count 8.9 K/mcL (4.3-11.1)
[2022-03-28 04:43] LABS: Alanine Aminotransferase 18 Units/L (7-52); Albumin 3.2 g/dL (3.5-5.7); Albumin/Globulin Ratio 1.5 (1.1-2.2); Alkaline Phosphatase 49 Units/L (34-104); Aspartate Amino Transferase 14 Units/L (13-39); BUN/Creatinine Ratio 34 (6-26); Bilirubin,Direct 0.1 mg/dL (0.0-0.2); Bilirubin,Indirect 0.4 mg/dL (0.0-1.0); Bilirubin,Total 0.5 mg/dL (0.3-1.0); Blood Urea Nitrogen 38 mg/dL (8-23); Calcium 8.2 mg/dL (8.6-10.3); Carbon Dioxide 25 mEq/L (23-29); Chloride 105 mEq/L (98-107); Globulin 2.2 g/dL (2.4-3.5); Glucose 237 mg/dL (70-105); Osmolality,Calculated 297 (280-300); Phosphorous 3.5 mg/dL (2.7-4.5); Potassium 4.7 mEq/L (3.5-5.1); Sodium 135 mEq/L (136-145); Total Protein 5.4 g/dL (6.4-8.9); eGFR For African Americans > 60 (> 60); eGFR For Non-African Americans > 60 (> 60)
[2022-03-28] MEDS: Doxycycline 100 MG CAPSULE PO SCH ×2 (08:48→20:20)
[2022-03-28] MEDS: predniSONE 20 MG TABLET PO SCH (08:49)
[2022-03-28] MEDS: Aspirin 81 MG TAB.CHEW PO SCH (08:49)
[2022-03-28] MEDS: *HR* Rivaroxaban 10 MG TABLET PO SCH (08:49)
[2022-03-28] MEDS: Insulin LISPRO 300 UNITS/3 ML VIAL SUBQ SCH ×4 (08:57→21:26)
[2022-03-28] MEDS ORDERED: *HR* Amiodarone 200 MG TABLET PO SCH (09:00)
[2022-03-28] MEDS: Multivit/Ca/Min/Fe/FA 1 TAB TABLET PO SCH (11:38)
[2022-03-28] MEDS ORDERED: *HR* Metoprolol 5 MG/5 ML VIAL IVP ONE (15:26)
[2022-03-28] MEDS: *HR* Metoprolol 5 MG/5 ML VIAL IVP PRN ×2 (15:34→21:09)
[2022-03-28] MEDS: cefTRIAXone 2,000 MG in 0.9 % Sodium Chloride 20 ML IVP SCH (16:48)
[2022-03-28] MEDS: Metoprolol XL (24 HR) Succ 25 MG TAB.ER.24H PO SCH (20:20)
[2022-03-29] MEDS: Insulin LISPRO 300 UNITS/3 ML VIAL SUBQ SCH ×4 (08:34→20:12)
[2022-03-29] MEDS: Aspirin 81 MG TAB.CHEW PO SCH (09:03)
[2022-03-29] MEDS: *HR* Rivaroxaban 10 MG TABLET PO SCH (09:03)
[2022-03-29] MEDS: Metoprolol XL (24 HR) Succ 25 MG TAB.ER.24H PO SCH (09:04)
[2022-03-29] MEDS: Doxycycline 100 MG CAPSULE PO SCH ×2 (09:04→20:05)
[2022-03-29] MEDS: predniSONE 20 MG TABLET PO SCH (09:04)
[2022-03-29 10:38] LABS: Basophils # 0.1 K/mcL (0.0-0.2); Basophils % 0.7 %; Eosinophils # 0.2 K/mcL (0.0-0.6); Eosinophils % 1.4 %; Hematocrit 45.6 % (37.5-50.1); Hemoglobin 15.2 g/dL (12.9-16.9); Immature Granulocytes % 4.1 % (0-4); Lymphocytes % 18.5 %; Mean Corpuscular HGB Conc 33.3 g/dL (31.6-35.5); Mean Corpuscular Hemoglobin 28.6 pg (28.0-33.3); Mean Corpuscular Volume 85.7 fL (83.0-100.0); Mean Platelet Volume 10.4 fL (9.4-12.4); Monocytes # 0.8 K/mcL (0.0-1.3); Monocytes % 7.4 %; Neutrophils # 7.5 K/mcL (1.6-8.9); Nucleated Red Blood Cells 0.3 /100 WBC (0); Platelet Count 201 K/mcL (140-400); Red Blood Count 5.32 M/mcL (4.19-5.50); Segmented Neutrophils % 67.9 %
[2022-03-29 10:59] LABS: BUN/Creatinine Ratio 26 (6-26); Blood Urea Nitrogen 27 mg/dL (8-23); Calcium 8.4 mg/dL (8.6-10.3); Carbon Dioxide 26 mEq/L (23-29); Chloride 105 mEq/L (98-107); Glucose 226 mg/dL (70-105); Magnesium 1.9 mg/dL (1.6-2.6); Osmolality,Calculated 296 (280-300); Phosphorous 2.1 mg/dL (2.7-4.5); Potassium 4.1 mEq/L (3.5-5.1); Sodium 137 mEq/L (136-145); eGFR For African Americans > 60 (> 60); eGFR For Non-African Americans > 60 (> 60)
[2022-03-29] MEDS: Multivit/Ca/Min/Fe/FA 1 TAB TABLET PO SCH (11:48)
[2022-03-29] MEDS ORDERED: Metoprolol XL (24 HR) Succ 25 MG TAB.ER.24H PO ONE (12:00)
[2022-03-29] MEDS: Metoprolol XL (24 HR) Succ 50 MG TAB.ER.24H PO SCH (20:06)
[2022-03-30 06:12] LABS: Basophils % 0.2 %; Eosinophils # 0.1 K/mcL (0.0-0.6); Eosinophils % 1.2 %; Hematocrit 42.1 % (37.5-50.1); Hemoglobin 14.1 g/dL (12.9-16.9); Immature Granulocytes % 7.4 % (0-4); Mean Corpuscular HGB Conc 33.5 g/dL (31.6-35.5); Mean Corpuscular Hemoglobin 28.5 pg (28.0-33.3); Mean Corpuscular Volume 85.2 fL (83.0-100.0); Monocytes # 0.8 K/mcL (0.0-1.3); Monocytes % 8.7 %; Neutrophils # 5.8 K/mcL (1.6-8.9); Nucleated Red Blood Cells 0.2 /100 WBC (0); Platelet Count 164 K/mcL (140-400); Red Blood Count 4.94 M/mcL (4.19-5.50); Red Cell Distribution Width 18.7 % (11.5-14.5); Segmented Neutrophils % 61.5 %; White Blood Count 9.4 K/mcL (4.3-11.1)
[2022-03-30 06:49] LABS: BUN/Creatinine Ratio 25 (6-26); Blood Urea Nitrogen 26 mg/dL (8-23); Calcium 8.5 mg/dL (8.6-10.3); Carbon Dioxide 25 mEq/L (23-29); Chloride 109 mEq/L (98-107); Glucose 132 mg/dL (70-105); Magnesium 2.1 mg/dL (1.6-2.6); Osmolality,Calculated 297 (280-300); Phosphorous 2.7 mg/dL (2.7-4.5); Potassium 4.5 mEq/L (3.5-5.1); Sodium 140 mEq/L (136-145); eGFR For African Americans > 60 (> 60); eGFR For Non-African Americans > 60 (> 60)
[2022-03-30] MEDS: Insulin LISPRO 300 UNITS/3 ML VIAL SUBQ SCH ×2 (07:18→11:59)
[2022-03-30] MEDS: predniSONE 20 MG TABLET PO SCH (09:16)
[2022-03-30] MEDS: *HR* Rivaroxaban 10 MG TABLET PO SCH (09:16)
[2022-03-30] MEDS: Metoprolol XL (24 HR) Succ 50 MG TAB.ER.24H PO SCH (09:16)
[2022-03-30] MEDS: Aspirin 81 MG TAB.CHEW PO SCH (09:16)
[2022-03-30 10:30] VITALS: BP 139/82; PULSE 67; TEMP 97.7; O2SAT 97
[2022-03-30] MEDS: Multivit/Ca/Min/Fe/FA 1 TAB TABLET PO SCH (11:59)
[2022-03-30] MEDS ORDERED: DilTIAZem CD (24hr) 120 MG CAP.ER.24H PO SCH (12:00)
== END 2022-03-30 16:22 | disposition home or self-care (01) | DRG 281 ==
LOC: EMEROOARM 13:00 → 3NENU 13:00 → ICNU 17:54 → SUATTDRO 18:10 → ICNU 18:12 → 2NENU 03-29 06:29
PROVIDERS: ADMIT Pediatrics; ATTEND Family Medicine